=== PATIENT | female | born 1950 | race Caucasian/White ===

== ENCOUNTER 2018-09-01 16:26 | Emergency (ER) | payer BC ==
--- NOTE | 2018-09-01 19:26 | ED ---
Head Injury - HPI Summary HPI Summary: 68-year-old female presents with head injury. States earlier this afternoon she was exiting a vehicle and she caught her shoe or lost balance and fell backwards hitting the back of her head on a concrete sidewalk. States she felt a "crack". No loss of consciousness and has full recollection of events both prior to and after the incident. Complains of mild headache and "wooziness". Denies visual disturbances, dizziness, speech difficulties, numbness, tingling, or weakness of the extremities, neck pain, nausea, vomiting, or other injury. - History Of Current Complaint Chief Complaint: EDHeadInjury Stated Complaint: FALL/HEAD INJURY PER PT Time Seen by Provider: 09/01/18 19:00 Hx Obtained From: Patient Pain Intensity: 0 - Allergies/Home Medications Allergies/Adverse Reactions: Allergies Allergy/AdvReac Type Severity Reaction Status Date / Time No Known Allergies Allergy Verified 09/01/18 16:34 PMH/Surg Hx/FS Hx/Imm Hx Previously Healthy: Yes - Denies significant PMH - Cancer History Hx Chemotherapy: No Hx Radiation Therapy: No - Surgical History Surgery Procedure, Year, and Place: ectopic 1984 Infectious Disease History: No Infectious Disease History: Denies: Traveled Outside the [place] in Last 30 Days Review of Systems Positive: Fatigue Negative: Photophobia, Blurred Vision, Diplopia Negative: Palpitations, Chest Pain Negative: Shortness Of Breath, Cough Negative: Abdominal Pain, Vomiting, Diarrhea, Nausea Genitourinary: Negative Musculoskeletal: Negative Skin: Negative Negative: Headache, Weakness, Paresthesia, Numbness, Syncope All Other Systems Reviewed And Are Negative: Yes Physical Exam - Summary Physical Exam Summary: GENERAL APPEARANCE: Well developed, well nourished, alert and cooperative, and appears to be in no acute distress. HEAD: Normocephalic. Mild tenderness and swelling without laceration or lesion to occipital scalp. EYES: Conjunctiva clear. No drainage. PERRL, EOM intact. Vision is grossly intact. EARS: External auditory canals and tympanic membranes clear, hearing grossly intact. NOSE: No nasal discharge. THROAT: Pharynx normal No tonsilar inflammation, swelling, exudate, or lesions. Uvula midline. Oral cavity normal. Teeth and gingiva in good general condition. NECK: Neck supple, non-tender without lymphadenopathy. CARDIAC: Normal S1 and S2. No S3, S4 or murmurs. Rhythm is regular. There is no peripheral edema, cyanosis or pallor. Extremities are warm and well perfused. Capillary refill is less than 2 seconds. Peripheral pulses intact. LUNGS: Clear to auscultation without rales, rhonchi, wheezing or diminished breath sounds. ABDOMEN: Positive bowel sounds. Soft, nondistended, nontender. No guarding or rebound. No masses or hepatosplenomegally. MUSKULOSKELETAL: ROM intact to all extremities. No joint erythema or tenderness. Normal muscular development. Normal gait. BACK: Examination of the spine reveals normal gait and posture, no spinal deformity or tenderness, decreased range of motion or muscular spasm. NEUROLOGICAL: CN II-XII intact. Strength and sensation symmetric and intact throughout. Reflexes 2+ throughout. Cerebellar testing normal. SKIN: Skin normal color, texture and turgor with no lesions or eruptions. Triage Information Reviewed: Yes Vital Signs On Initial Exam: Initial Vitals Temp Pulse Resp BP Pulse Ox 96.8 F 84 18 120/92 96 09/01/18 16:27 09/01/18 16:27 09/01/18 16:27 09/01/18 16:27 09/01/18 16:27 Vital Signs Reviewed: Yes Diagnostics - Vital Signs Vital Signs Temp Pulse Resp BP Pulse Ox 09/01/18 16:27 96.8 F 84 18 120/92 96 - Laboratory Lab Statement: Any lab studies that have been ordered have been reviewed, and results considered in the medical decision making process. - CT No standard instances CT Interpretation Completed By: Radiologist - EXAM: CT Head Without Contrast EXAM DATE/TIME: 09/01/2018 6:30 PM CLINICAL HISTORY: 68 years old, female; Signs and symptoms; Other: S/P fall; Additional info: Fall, head injury, no loc TECHNIQUE: Imaging protocol: Axial computed tomography images of the head/brain without contrast. Radiation optimization: All CT scans at this facility use at least one of these dose optimization techniques: automated exposure control; mA and/or kV adjustment per patient size (includes targeted exams where dose is matched to clinical indication); or iterative reconstruction. COMPARISON: No relevant prior studies available. FINDINGS: Brain: No acute ischemic changes , extra axial fluid collections, intraparenchymal hemorrhage, or midline shift. Ventricles: Normal. No ventriculomegaly. Bones/joints: Normal. No acute fracture. Sinuses: Visualized sinuses are normal. No acute sinusitis. Mastoid air cells: Visualized mastoid air cells are normal. No mastoid effusion. Soft tissues: Normal. Vasculature: The vasculature demonstrates diffuse mild atherosclerotic calcification. IMPRESSION: No traumatic intracranial abnormalities. Head Injury Course/Dx Course Of Treatment: 68-year-old female presents with head injury. States earlier this afternoon she was exiting a vehicle and she caught her shoe or lost balance and fell backwards hitting the back of her head on a concrete sidewalk. States she felt a "crack". No loss of consciousness and has full recollection of events both prior to and after the incident. Complains of mild headache and "wooziness". Denies visual disturbances, dizziness, speech difficulties, numbness, tingling, or weakness of the extremities, neck pain, nausea, vomiting, or other injury. Afebrile. Vital signs stable. Exam remarkable only for mild tenderness and swelling to the occipital scalp. CT brain without contrast shows no acute injury. Recommend conservative treatment for a closed head injury without loss of consciousness. She is to follow up with her primary care provider in 3-5 days if symptoms persist. Anticipatory guidance and warning symptoms were reviewed with the patient. Verbalizes understanding and agrees with plan of care. - Diagnoses Differential Diagnosis/HQI/PQRI: Concussion Without LOC, Contusion, Laceration, Skull Fracture Provider Diagnoses: Closed head injury without loss of consciousness Discharge - Sign-Out/Discharge Documenting (check all that apply): Patient Departure Patient Received Moderate/Deep Sedation with Procedure: No - Discharge Plan Condition: Stable Disposition: HOME Patient Education Materials: Head Injury (ED) Referrals: Erin Driver MD [Primary Care Provider] - 3 Days (Follow up in 3-5 days for recheck especially if no improvement in symptoms.) Additional Instructions: The CT scan performed in the emergency room today showed no acute injury. Rest as much as possible. It is usually recommended that you refrain from any activities that require concentration and electronic devices if you are have any headache. You may take acetaminophen (Tylenol) according to directions as needed for pain or headache. Follow up with your primary care provider in 3-5 days for recheck of symptoms especially if still having symptoms. Return to the emergency room for a severe headache that is not managed with pain medication, visual disturbances, confusion, you are difficult to arouse, dizziness, weakness, numbness or tingling in arms or legs, persist or projectile vomiting, or any worsening of symptoms. - Billing Disposition and Condition Condition: STABLE Disposition: Home
[2018-09-01 19:44] VITALS: BP 128/70
== END 2018-09-01 19:46 | disposition home or self-care (01) ==
LOC: ED 16:26
DX: S09.90XA Unspecified injury of head, initial encounter (principal); W18.30XA Fall on same level, unspecified, initial encounter; Y92.480 Sidewalk as the place of occurrence of the external cause
CPT/HCPCS: 70450; 99282